=== PATIENT | female | born 1970 | race African-American/Black ===

== ENCOUNTER 2024-09-09 17:23 | Emergency (ER) | payer MEDICAID, SELFPAY ==
--- NOTE | 2024-09-09 18:49 | EKG_ITS ---
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
[2024-09-09 18:50] VITALS: BP 146/67; PULSE 61; RESP 17; TEMP 37.4; O2SAT 96; BMI 31.4
--- NOTE | 2024-09-09 19:11 | XR_ITS ---
Examination: PA chest single view Findings portable and PA chest single view Date and time: September 09, 2024 1933 hours INDICATIONS: Onset chest pain FINDINGS: Normal heart size Lungs are clear. The osseous structures are intact IMPRESSION: No active disease
--- NOTE | 2024-09-09 19:11 | PD.EDRME ---
Rapid Medical Screening Exam RME Arrival date/time: 09/09/24 17:23 54F w/ PMH of COPD/asthma, CHF, HTN, HLD, aortobifemoral bypass, and GERD presents to ED with 1 week of upper back/chest pain and SOB, possibly after she lifted something heavy. There is also some fatigue/weakness. Patient is currently on clindamycin for a dental infection. Chief Complaint: Back Pain/Injury Time Seen by Provider: 09/09/24 18:58 Vital signs: Vital Signs Temperature 99.3 F 09/09/24 18:50 Pulse Rate 61 09/09/24 18:50 Respiratory Rate 17 09/09/24 18:50 Blood Pressure 146/67 H 09/09/24 18:50 Pulse Oximetry (%) 96 09/09/24 18:50 Oxygen Delivery Method Room Air 09/09/24 18:50
[2024-09-09 19:32] LABS: Lactate (Lactic Acid) 1.1 mMol/L (0.4-2.0)
[2024-09-09 19:39] LABS: Basophils # (Auto) 0.1 Thou/mm3 (0.0-0.2); Basophils % (Auto) 1 % (0-2.5); Eosinophils # (Auto) 0.3 Thou/mm3 (0.0-0.5); Eosinophils % (Auto) 2 % (0-10); Hematocrit 41.0 % (36.0-46.0); Hemoglobin 13.5 g/dL (12.0-16.0); Immature Granulocytes Auto 0.03 Thou/mm3 (0.00-0.00); Lymphocytes # (Auto) 5.9 Thou/mm3 (1.0-4.8); Lymphocytes % (Auto) 45 % (10-50); Mean Corpuscular HGB Conc 32.9 g/dl (31.0-37.0); Mean Corpuscular Hemoglobin 27.8 pg (25.0-35.0); Mean Corpuscular Volume 85 fL (80-100); Monocytes # (Auto) 0.7 Thou/mm3 (0.0-0.8); Monocytes % (Auto) 5 % (0-12); Neutrophils # (Auto) 6.1 Thou/mm3 (1.8-7.7); Neutrophils % (Auto) 47 % (37-80); Nucleated Red Blood Cell # 0.00 Thou/mm3 (0.00-0.00); Nucleated Red Blood Cell % 0 /100 WBC (0); Platelet Count 296 Thou/mm3 (140-440); RDW Standard Deviation 53.5 fL (36.4-46.3); Red Blood Count 4.85 Miln/mm3 (4.00-5.20); White Blood Count 13.1 Thou/mm3 (3.6-11.0)
[2024-09-09 19:58] LABS: B-Type Natriuretic Peptide 26 pg/mL (0-100)
[2024-09-09 20:06] LABS: Alanine Aminotransferase 7 U/L (10-49); Albumin, Serum 5.3 gm/dL (3.5-5.0); Albumin/Globulin Ratio 2.2 (1.2-2.2); Alkaline Phosphatase 95 U/L (46-116); Anion Gap 7 (7-16); Aspartate Amino Transferase 13 U/L (0-34); BUN/Creatinine Ratio 11 Ratio (12-20); Bilirubin,Total 0.3 mg/dL (0.3-1.2); Blood Urea Nitrogen 10 mg/dL (9-23); Calcium 10.0 mg/dL (8.3-10.6); Calcium (Corrected) 10.0 mg/dL (8.5-10.1); Carbon Dioxide 24.9 mMol/L (20.0-31.0); Chloride 113 mMol/L (98-107); Creatinine (Component) 0.9 mg/dL (0.6-1.3); Estimated Creatinine Clearance 64.8 mL/min (>60); Globulin 2.4 gm/dL (2.3-3.5); Glucose 96 mg/dL (74-106); Magnesium 2.1 mg/dL (1.6-2.6); Osmolality,Calculated 287 (275-295); Potassium 3.2 mMol/L (3.4-5.1); Procalcitonin 0.05 ng/ml (0.0-0.49); Sodium 145 mMol/L (136-145); Total Protein 7.7 gm/dL (5.7-8.2); Troponin I < 0.020 ng/mL (0.0-0.045); eGFR > 60 See Note
[2024-09-09 21:15] LABS: Path Review Blood Smear Sent to Pathologist
[2024-09-09 21:42] VITALS: BP 148/81; PULSE 79; RESP 18; TEMP 37; O2SAT 99
--- NOTE | 2024-09-09 21:59 | PD.EDBACK ---
ED Back Injury Pain RME/HPI General Chief Complaint: Back Pain/Injury Stated Complaint: Lower back, right ribs pain and SOB Time Seen by Provider: 09/09/24 18:58 Arrival date/time: 09/09/24 17:23 RME / HPI RME / HPI Narrative: 09/09/24 17:23 54F w/ PMH of COPD/asthma, CHF, HTN, HLD, aortobifemoral bypass, and GERD presents to ED with 1 week of upper back/chest pain and SOB, possibly after she lifted something heavy. There is also some fatigue/weakness. Patient is currently on clindamycin for a dental infection. ----- Dr. Scott?s Main ED Evaluation: 54yo female with a history of COPD, HTN, aortobifemoral bypass presents to the ED for a chief complaint of right lower chest pain that radiates to her back x 1 week. Patient denies any falls or injuries. She is a current tobacco smoker. No fever, chills, N/V, dizziness or any other associated symptoms. Related Data Home Medications ?Medication ?Instructions ?Recorded ?Confirmed ascorbic acid (vitamin C) 500 mg 500 mg PO BID 12/09/21 01/17/22 tablet atorvastatin 10 mg tablet 10 mg PO QDAY 12/09/21 01/17/22 baclofen 10 mg tablet 10 mg PO QDAY 12/09/21 01/17/22 collagenase clostridium histo. 250 1 applic topical QDAY 12/09/21 01/17/22 unit/gram topical ointment (Santyl) ergocalciferol (vitamin D2) 1,250 1,250 mcg PO QWEEK 12/09/21 01/17/22 mcg (50,000 unit) capsule gabapentin 600 mg tablet 600 mg PO TID 12/09/21 01/17/22 guaifenesin 100 mg/5 mL oral 200 mg PO Q4H PRN Cough 12/09/21 01/17/22 liquid (Sofie-Tussin) hydrocodone 10 mg-acetaminophen 1 tab PO Q6H PRN Pain 12/09/21 01/17/22 325 mg tablet lactulose 20 gram/30 mL oral 20 g PO QDAY PRN Constipation 12/09/21 01/17/22 solution loratadine 10 mg tablet 10 mg PO QDAY 12/09/21 01/17/22 multivitamin 1 tab PO QDAY 12/09/21 01/17/22 omeprazole 20 mg capsule,delayed 20 mg PO QDAY 12/09/21 01/17/22 release Previous Rx's ?Medication ?Instructions ?Recorded ferrous fumarate-folic acid 324 mg 1 tab PO QDAY #30 tabs 12/24/21 (106 mg iron)-1 mg tablet prednisone 20 mg tablet See Taper PO QDAY #7 tabs 12/24/21 prednisone 50 mg tablet 50 mg PO QDAY #7 tabs 02/13/22 Allergies Allergy/AdvReac Type Severity Reaction Status Date / Time Penicillins Allergy Severe Swelling Verified 09/09/24 17:29 of Lip/Tongue/Throat Review of Systems Review of Systems Systems Reviewed: All systems reviewed, normal except as documented Past Medical History Past Medical History NEUROLOGIC: Negative Seizures CARDIAC: Positive Myocardial Infarction, Congestive Heart Failure and Hypertension; Negative Cardiac Disorders RESPIRATORY: Positive Chronic Obstructive Pulmonary Disease (COPD); Negative Asthma GENITOURINARY: Negative Renal Disease ENDOCRINE: Negative Diabetes Mellitus Type 1 or Diabetes Mellitus Type 2 HEMATOLOGIC: Negative Sickle Cell Disease OTHER HISTORY: Positive Blood Transfusions; Negative Blood Transfusion Reaction or Anesthesia Reactions Social History SMOKING STATUS: Current every day smoker ED Exam Narrative Physical exam: Generally patient is alert in no obvious distress, heart regular rate and rhythm that rubs or gallops, lungs clear to auscultation equal bilaterally, abdomen soft bowel sounds present nondistended nontender with a laparotomy scar. Chest shows the patient have reproducible tenderness to light palpation under the right breast and right posterior back without overlying rash. Course Quality Measures none Orders Category Date Time Status EKG (ED ONLY) *Do not use* NOW Care 09/09/24 18:49 Completed EKG (ED Only) Stat Exams 09/09/24 18:49 Draft XR chest 1V portable Stat Exams 09/09/24 19:11 Completed B-Type Natriuretic Peptide Stat Lab 09/09/24 19:26 Completed CBC Stat Lab 09/09/24 19:26 Completed Comprehensive Metabolic Panel Stat Lab 09/09/24 19:26 Completed Lactate (Lactic Acid) Stat Lab 09/09/24 19:26 Completed Magnesium Stat Lab 09/09/24 19:26 Completed Path Review Blood Smear Stat Lab 09/09/24 19:26 Completed Procalcitonin Stat Lab 09/09/24 19:26 Completed Troponin I Stat Lab 09/09/24 19:26 Completed Vital Signs Vital signs: Vital Signs Temperature 99.3 F 09/09/24 18:50 Pulse Rate 61 09/09/24 18:50 Respiratory Rate 17 09/09/24 18:50 Blood Pressure 146/67 H 09/09/24 18:50 Pulse Oximetry (%) 96 09/09/24 18:50 Oxygen Delivery Method Room Air 09/09/24 18:50 Back Pain / Injury MDM Narrative MDM Narrative:: Scribe Attestation: 09/09/24 - Erick, Kailee May am scribing for and in the presence of Dr. Scott. I interpreted all labs. The patient's physical exam is not compatible with internal cause of the patient's pain. Chest x-ray is normal. EKG is nonischemic. It was obtained at 6:54 PM and shows sinus bradycardia at a rate of 51 without ischemic change or ectopy. Troponin was not elevated. Patient has had this pain for over a week. Patient is on multiple medications at home. Patient will be discharged in stable condition. Patient data External records reviewed:: [facility] previous records (Per chart review, patient was seen here on 04/07/22 for abdominal pain.) Clinical information provided by:: patient Social determinants that could affect healthcare access:: substance use (tobacco use) Patient has the following chronic illnesses:: CHF, COPD, HTN, aortobifemoral bypass How is presenting disease/condition affected by chronic disease/condition?: uneffected by Evaluation data The following diagnostics were reviewed and interpreted by me:: lab results, radiology exam(s) and EKG tracing(s) Lab and/or radiology exams considered but not ordered:: none Interpretation Summary: [facility] Report Signed Patient: DEYANIRA CURRAN [facility] Record#: [id number] Birthdate: 1970 Age/Sex: 54 / F Location: [facility] Attending Dr: Ordering Physician: Jluis Anglin PA-C Date of Service: 09/09/24 Procedure(s): XR chest 1V portable Accession Number(s): [id number] cc: Lalo Oscar MD; TRAVIS DUGAN; Jluis Anglin PA-C~ Examination: PA chest single view Findings portable and PA chest single view Date and time: September 09, 2024 1933 hours INDICATIONS: Onset chest pain FINDINGS: Normal heart size Lungs are clear. The osseous structures are intact IMPRESSION: No active disease Dictated By: Lalo Oscar MD Signed By: <Electronically signed by Lalo Oscar MD in OV> 09/09/242041 Medications / Prescriptions Medications or Prescriptions considered but not ordered:: none Medication administrations:: see above, if any Consultations Consultation(s) initiated? (list below): No Diagnosis Differential diagnosis back pain/injury: other (NSTEMI, STEMI, ACS, musculoskeletal strain) Most likely diagnosis given after review of the tests above:: see clinical impression below Admission Indicated Admission indicated?: not indicated Admission Request Was there a request for admission?: No Disposition Plan Disposition Plan: Discharge Discharge Attestation Discharge Attestation: The patient and all family members were given an opportunity to ask questions and understood the discharge instructions. Discharge instructions specifically effects, indications for sooner follow up or return to the emergency department, and the expected course of current diagnosis. Patient condition: Stable Discharge Plan Plan Patient Disposition: HOME (Self Care) Prescriptions/Referrals Prescriptions/Med Rec: No Action multivitamin Tablet 1 tab PO QDAY gabapentin 600 mg Tablet 600 mg PO TID atorvastatin 10 mg Tablet 10 mg PO QDAY hydrocodone-acetaminophen 10-325 mg Tablet 1 tab PO Q6H PRN (Reason: Pain) guaifenesin [Sofie-Tussin] 100 mg/5 mL Liquid 200 mg PO Q4H PRN (Reason: Cough) ascorbic acid (vitamin C) 500 mg Tablet 500 mg PO BID baclofen 10 mg Tablet 10 mg PO QDAY omeprazole 20 mg Capsule,Delayed Release(Dr/Ec) 20 mg PO QDAY ergocalciferol (vitamin D2) 1,250 mcg (50,000 unit) Capsule 1,250 mcg PO QWEEK Rx Instructions: ON FRIDAY Santyl 250 unit/gram Ointment 1 applic TOPICAL QDAY loratadine 10 mg Tablet 10 mg PO QDAY lactulose 20 gram/30 mL Solution 20 g PO QDAY PRN (Reason: Constipation) ferrous fumarate-folic acid 324 mg (106 mg iron)-1 mg tablet 1 tab PO QDAY Qty: 30 0RF Rx Instructions: administer between meals prednisone 20 mg tablet See Taper PO QDAY Qty: 7 0RF Taper: Prednisone Taper 20 mg DAILY for 2 Days and 0 Hour 10 mg DAILY for 2 Days and 0 Hour 5 mg DAILY for 7 Days and 0 Hour prednisone 50 mg tablet 50 mg PO QDAY Qty: 7 0RF Referrals: Travis Dugan [Primary Care Provider] - In 1 week Problem List Clinical Impression: Musculoskeletal pain Patient/Caregiver Discharge Instructions Additional Instructions: Continue all current home medications. Follow-up with your doctor for further treatment and evaluation. Return to ER as needed or if condition worsens. Print Language: Angolan Stand Alone Forms: Cassandra Award Info., Patient Portal Info Letter
== END 2024-09-09 22:43 | disposition home or self-care (01) ==
PROVIDERS: Physician Assistant; Emergency Provider Emergency Medicine; PCP Family Medicine
DX: M79.18 Myalgia, other site (principal); R07.89 Other chest pain; R00.1 Bradycardia, unspecified; I11.0 Hypertensive heart disease with heart failure; I50.9 Heart failure, unspecified; F17.210 Nicotine dependence, cigarettes, uncomplicated
CPT/HCPCS: 36415; 71045; 80053; 83605; 83735; 83880; 84145; 84484; 85025; 93005; 99283

== ENCOUNTER 2025-01-24 14:32 | Emergency (ER) | payer MEDICAID, SELFPAY ==
--- NOTE | 2025-01-24 14:48 | PD.EDWEAK ---
ED Weakness RME/HPI General Chief complaint: General Adult/Misc Complain Stated complaint: SUPRAPUBIC PAIN W/ BUMPS/SWELLING Time Seen by Provider: 01/24/25 14:36 Arrival date/time: 01/24/25 14:32 RME / HPI RME / HPI Narrative: See [facility] for Dr. Hurt's HPI Documentation. Related Data Home Medications ?Medication ?Instructions ?Recorded ?Confirmed ascorbic acid (vitamin C) 500 mg 500 mg PO BID 12/09/21 01/17/22 tablet atorvastatin 10 mg tablet 10 mg PO QDAY 12/09/21 01/17/22 baclofen 10 mg tablet 10 mg PO QDAY 12/09/21 01/17/22 collagenase clostridium histo. 250 1 applic topical QDAY 12/09/21 01/17/22 unit/gram topical ointment (Santyl) ergocalciferol (vitamin D2) 1,250 1,250 mcg PO QWEEK 12/09/21 01/17/22 mcg (50,000 unit) capsule gabapentin 600 mg tablet 600 mg PO TID 12/09/21 01/17/22 guaifenesin 100 mg/5 mL oral 200 mg PO Q4H PRN Cough 12/09/21 01/17/22 liquid (Sofie-Tussin) hydrocodone 10 mg-acetaminophen 1 tab PO Q6H PRN Pain 12/09/21 01/17/22 325 mg tablet lactulose 20 gram/30 mL oral 20 g PO QDAY PRN Constipation 12/09/21 01/17/22 solution loratadine 10 mg tablet 10 mg PO QDAY 12/09/21 01/17/22 multivitamin 1 tab PO QDAY 12/09/21 01/17/22 omeprazole 20 mg capsule,delayed 20 mg PO QDAY 12/09/21 01/17/22 release Previous Rx's ?Medication ?Instructions ?Recorded ferrous fumarate-folic acid 324 mg 1 tab PO QDAY #30 tabs 12/24/21 (106 mg iron)-1 mg tablet prednisone 20 mg tablet See Taper PO QDAY #7 tabs 12/24/21 prednisone 50 mg tablet 50 mg PO QDAY #7 tabs 02/13/22 azithromycin 500 mg tablet 500 mg PO QDAY 3 days #3 tabs 01/24/25 (Zithromax TRI-CONSUELO) clindamycin HCl 300 mg capsule 300 mg PO QID 10 days #40 caps 01/24/25 prednisone 50 mg tablet 50 mg PO QDAY #3 tabs 01/24/25 Allergies Allergy/AdvReac Type Severity Reaction Status Date / Time Penicillins Allergy Severe Swelling Verified 01/24/25 14:36 of Lip/Tongue/Throat Review of Systems Review of Systems Systems Reviewed: All systems reviewed, normal except as documented Past Medical History Past Medical History CARDIAC: Positive Myocardial Infarction, Congestive Heart Failure and Hypertension RESPIRATORY: Positive Chronic Obstructive Pulmonary Disease (COPD) OTHER HISTORY: Positive Blood Transfusions Social History SMOKING STATUS: Current every day smoker ED Exam Narrative Physical exam: See [facility] for Dr. Hurt's Physical Exam Documentation. Course Quality Measures none Orders Category Date Time Status CT Screening NOW Care 01/24/25 14:[address] Screening NOW Care 01/24/25 14:56 Completed EKG (ED ONLY) *Do not use* NOW Care 01/24/25 14:53 Completed Saline [Insert IV] NOW Care 01/24/25 14:[address] abdomen pelvis w con Stat Exams 01/24/25 14:[address] angio chest Stat Exams 01/24/25 14:[address] facial bones w con Stat Exams 01/24/25 14:[address] head/brain wo con Stat Exams 01/24/25 14:54 Completed EKG (ED Only) Stat Exams 01/24/25 14:53 Draft US soft tissue lower back abd Stat Exams 01/24/25 14:51 Completed US venous doppler LE BI Stat Exams 01/24/25 14:53 Completed US venous doppler UE BI Stat Exams 01/24/25 14:53 Completed XR chest 1V portable Stat Exams 01/24/25 14:53 Completed Acetaminophen Tab [Tylenol ES Tab] Med 01/24/25 20:24 Discontinued 1,000 mg PO X1 ONE Albuterol/Ipratr Rt Odalis [Duoneb Rt Odalis] Med 01/24/25 20:24 Discontinued 3 ml INH X1 ONE Clindamycin [Cleocin] Med 01/24/25 20:24 Discontinued 300 mg PO X1 ONE Ibuprofen Tab [Motrin Tab] Med 01/24/25 20:24 Discontinued 600 mg PO X1 ONE predniSONE Med 01/24/25 20:24 Discontinued 60 mg PO X1 ONE Vital Signs Vital signs: Vital Signs Temperature 99.5 F 01/24/25 14:50 Pulse Rate 107 H 01/24/25 14:50 Respiratory Rate 20 01/24/25 14:50 Blood Pressure 166/106 H 01/24/25 14:50 Pulse Oximetry (%) 96 01/24/25 14:50 Oxygen Delivery Method Room Air 01/24/25 14:50 PROCEDURES: Abscess I/D Site: abdomen Local Anesthetic: lidocaine 1% Amount of anesthesia used (mL): 3 Technique: incised with #11 blade Amount of fluid expressed (mL): 3 Irrigation: No Packing used?: none Weakness MDM Narrative MDM Narrative:: This section includes all my notes and documentations, including HPI, PE, and ED course. Addison Hurt MD HPI: 54 y/o female with Hx of CHF, OR, COPD, and HTN multiple areas of pain. Including headache and dental pain and neck pain and chest pain and back pain and arm pain and leg pain and painful lump in the lower abdominal area. She has trouble describing the onset. She has trouble describing the quality and quantity of the pain. She is concerned because she had clots in multiple areas of her body in the past. No fever or chills. No other complaints. ROS: All negative except as documented in HPI. Physical Exam: General: Alert and oriented. No acute distress when remaining still. Eyes: Conjunctivae and lids clear. EOMI. PERRL. ENT: No nasal congestion. Pharynx normal. Tympanic membrane normal bilaterally. In the mouth, diffuse dental caries noted with diffuse edematous gums with erythema and tenderness. Neck: Supple. No carotid bruit. No JVD. No spinal tenderness. Heart: RRR. Lungs: No respiratory distress. Mildly decreased air movement with rhonchi. Chest: No tenderness. Abdomen: Soft and nontender. Normal bowel sounds. No distension. No rebound or guarding. Back: No spinal tenderness. Legs: No clubbing, cyanosis, edema. Skin: Warm and dry. In the lower abdominal area, there is a pecan sized erythematous fluctuant mass with calor and tenderness. Neuro: Alert and oriented X 3. Cranial Nerves II-XII grossly intact. No peripheral motor deficits. Musculoskeletal: All major joints and bones are not tender with no limited ROM. I reviewed all diagnostic test results: My interpretation of the EKG is: Sinus rhythm (64 bpm) with nonspecific ST-T changes. My interpretation of the chest x-ray is: NAD. My review of the Head/Brain CT report is: Prominent chronic frontal and ethmoid sinusitis. My review of the Facial Bones CT report is: Right mandibular incisal dental caries. Cellulitis pattern bilaterally anterior to the maxilla and the mandible which may relate to the patient's piercing in the right lip. My review of the Chest CTA report is: NAD. My review of the Abdomen/Pelvis CT report is: NAD. My review of the Venous Doppler BLE US report is: No DVT. My review of the Venous Doppler BUE US report is: No DVT. My review of the Soft Tissue Lower Abdomen US report is: 2.4 x 0.7 x 2.3 cm abscess. At this point, diagnoses include: Cutaneous abscess of abdominal wall COPD (chronic obstructive pulmonary disease) Infected dental caries Treatment here included: Incision and drainage (see procedure note) Prednisone 80 mg DuoNeb Oral clindamycin 100 mg Tylenol and ibuprofen She felt much better. Recommended more outpatient care. Based on my best medical judgment, made decision no further evaluation or treatment indicated at this time. Patient understands and agrees to the discharge instructions customized and printed, see below. Discharge Instructions from Dr. Hurt printed for you: 1. After extensive evaluation (literally from head to toe), there is no immediately life-threatening condition. Such as stroke or brain tumor or heart attack or pulmonary embolism (blood clots in your lungs) or pneumothorax (collapsed lung). And there is no very serious infection. Such as pneumonia or sepsis (blood poisoning). 2. Your diagnoses include superficial abscess in lower abdominal wall (incised and drained here) and COPD flare and infected dental caries. See attached handouts. ?Three times per day, soak in warm water with antibacterial soap and Epsom salt. Try to gently squeeze out more pus before the incisions closed. ?After drying as much as possible, apply new dressings 3. Take Zithromax and clindamycin for your infections. 4. For your COPD: -- No physical exertion for 3 days to help rest the lungs. -- No smoking or exposure to smoking or pets or dust or cold or humidity. -- Prednisone to help decrease the swelling in the airways. -- Neb treatment every 4-6 hours for 3 days scheduled to help keep the airways open. Then as needed for cough or shortness of breath. 5. You need to remove your lip piercing for cellulitis (infection) to get better, along with taking above antibiotics. 6. For your severe infected dental caries, you need to see a dentist as soon as possible. Most likely, you will need to remove your teeth. Otherwise, your infection will probably never get better. 7. See a private doctor on 01/26/2025 for recheck and further care. Ask for help until you are completely better. Ask to review all test results and official radiology reports, to make sure you receive all necessary follow-ups and monitoring, including lung nodules and gastritis and sinusitis and thyroid mass. 8. Seek immediate medical care with fever, spreading redness from an infection, or with any concerns. Addison Hurt MD Patient data External records reviewed:: [facility] previous records (Reviewed prior ED records from 09/09/24. Patient was seen for Musculoskeletal pain.) Clinical information provided by:: patient Social determinants that could affect healthcare access:: none Patient has the following chronic illnesses:: Congestive Heart Failure, Hypertension, COPD How is presenting disease/condition affected by chronic disease/condition?: exacerbated by Evaluation data The following diagnostics were reviewed and interpreted by me:: radiology exam(s) and EKG tracing(s) (My interpretation of the EKG is: Sinus rhythm (64 bpm) with nonspecific ST-T changes. Addison Hurt MD) Lab and/or radiology exams considered but not ordered:: None Interpretation Summary: I reviewed all diagnostic test results: My interpretation of the EKG is: Sinus rhythm (64 bpm) with nonspecific ST-T changes. My interpretation of the chest x-ray is: NAD. My review of the Head/Brain CT report is: Prominent chronic frontal and ethmoid sinusitis. My review of the Facial Bones CT report is: Right mandibular incisal dental caries. Cellulitis pattern bilaterally anterior to the maxilla and the mandible which may relate to the patient's piercing in the right lip. My review of the Chest CTA report is: NAD. My review of the Abdomen/Pelvis CT report is: NAD. My review of the Venous Doppler BLE US report is: No DVT. My review of the Venous Doppler BUE US report is: No DVT. My review of the Soft Tissue Lower Abdomen US report is: 2.4 x 0.7 x 2.3 cm abscess. Medications / Prescriptions Medications or Prescriptions considered but not ordered:: None Medication administrations:: Medication Administration History Discontinued Medications Acetaminophen (Acetaminophen 500 Mg Tablet) 1,000 mg PO X1 ONE Stop: 01/24/25 20:25 Last Admin: 01/24/25 21:10 Dose: 1,000 mg Documented By: OA Albuterol/Ipratropium (Albuterol/Ipratropium (Duoneb) Rt Odalis 3 Ml Nebu) 3 ml INH X1 ONE Stop: 01/24/25 20:25 Last Admin: 01/24/25 21:27 Dose: 3 ml Documented By: SOMMER Clindamycin HCl (Clindamycin 150 Mg Capsule) 300 mg PO X1 ONE Stop: 01/24/25 20:25 Last Admin: 01/24/25 21:10 Dose: 300 mg Documented By: OA Ibuprofen (Ibuprofen Tab 600 Mg Tablet) 600 mg PO X1 ONE Stop: 01/24/25 20:25 Last Admin: 01/24/25 21:10 Dose: 600 mg Documented By: OA Prednisone (Prednisone 20 Mg Tablet) 60 mg PO X1 ONE Stop: 01/24/25 20:25 Last Admin: 01/24/25 21:10 Dose: 60 mg Documented By: OA Treatment here included: Incision and drainage (see procedure note) Prednisone 80 mg DuoNeb Oral clindamycin 100 mg Tylenol and ibuprofen Consultations Consultation(s) initiated? (list below): No Diagnosis Weakness Differential Diagnosis: acute myocardial infarction, anemia, hypoglycemia, hypothyroidism, rhabdomyolysis, sepsis and dehydration Most likely diagnosis given after review of the tests above:: Cutaneous abscess of abdominal wall COPD (chronic obstructive pulmonary disease) Infected dental caries Admission Indicated Admission indicated?: not indicated Explain why admission is indicated or not indicated:: With significant improvement and no condition needing emergent intervention, there was no indication for admission. Admission Request Was there a request for admission?: No Disposition Plan Disposition Plan: Discharge Discharge Attestation Discharge Attestation: The patient and all family members were given an opportunity to ask questions and understood the discharge instructions. Discharge instructions specifically effects, indications for sooner follow up or return to the emergency department, and the expected course of current diagnosis. Patient condition: Stable Discharge Plan Plan Patient Disposition: HOME (Self Care) Prescriptions/Referrals Prescriptions/Med Rec: New clindamycin HCl 300 mg capsule 300 mg PO QID 10 Days Qty: 40 0RF prednisone 50 mg tablet 50 mg PO QDAY Qty: 3 0RF azithromycin [Zithromax TRI-CONSUELO] 500 mg tablet 500 mg PO QDAY 3 Days Qty: 3 0RF No Action multivitamin Tablet 1 tab PO QDAY gabapentin 600 mg Tablet 600 mg PO TID atorvastatin 10 mg Tablet 10 mg PO QDAY hydrocodone-acetaminophen 10-325 mg Tablet 1 tab PO Q6H PRN (Reason: Pain) guaifenesin [Sofie-Tussin] 100 mg/5 mL Liquid 200 mg PO Q4H PRN (Reason: Cough) ascorbic acid (vitamin C) 500 mg Tablet 500 mg PO BID baclofen 10 mg Tablet 10 mg PO QDAY omeprazole 20 mg Capsule,Delayed Release(Dr/Ec) 20 mg PO QDAY ergocalciferol (vitamin D2) 1,250 mcg (50,000 unit) Capsule 1,250 mcg PO QWEEK Rx Instructions: ON FRIDAY Santyl 250 unit/gram Ointment 1 applic TOPICAL QDAY loratadine 10 mg Tablet 10 mg PO QDAY lactulose 20 gram/30 mL Solution 20 g PO QDAY PRN (Reason: Constipation) ferrous fumarate-folic acid 324 mg (106 mg iron)-1 mg tablet 1 tab PO QDAY Qty: 30 0RF Rx Instructions: administer between meals prednisone 20 mg tablet See Taper PO QDAY Qty: 7 0RF Taper: Prednisone Taper 20 mg DAILY for 2 Days and 0 Hour 10 mg DAILY for 2 Days and 0 Hour 5 mg DAILY for 7 Days and 0 Hour prednisone 50 mg tablet 50 mg PO QDAY Qty: 7 0RF Referrals: No Primary/Family,Physician [Referring Provider] - In 1 week Problem List Clinical Impression: Cutaneous abscess of abdominal wall, COPD (chronic obstructive pulmonary disease), Infected dental caries Patient/Caregiver Discharge Instructions Discharge Activity: activity as tolerated Education Materials: ED COPD Flare, ED Dental Cavity, ED Dental Abscess, ED Abscess Incision And ... Additional Instructions: Discharge Instructions from Dr. Hurt printed for you: 1. After extensive evaluation (literally from head to toe), there is no immediately life-threatening condition. Such as stroke or brain tumor or heart attack or pulmonary embolism (blood clots in your lungs) or pneumothorax (collapsed lung). And there is no very serious infection. Such as pneumonia or sepsis (blood poisoning). 2. Your diagnoses include superficial abscess in lower abdominal wall (incised and drained here) and COPD flare and infected dental caries. See attached handouts. ?Three times per day, soak in warm water with antibacterial soap and Epsom salt. Try to gently squeeze out more pus before the incisions closed. ?After drying as much as possible, apply new dressings 3. Take Zithromax and clindamycin for your infections. 4. For your COPD: -- No physical exertion for 3 days to help rest the lungs. -- No smoking or exposure to smoking or pets or dust or cold or humidity. -- Prednisone to help decrease the swelling in the airways. -- Neb treatment every 4-6 hours for 3 days scheduled to help keep the airways open. Then as needed for cough or shortness of breath. 5. You need to remove your lip piercing for cellulitis (infection) to get better, along with taking above antibiotics. 6. For your severe infected dental caries, you need to see a dentist as soon as possible. Most likely, you will need to remove your teeth. Otherwise, your infection will probably never get better. 7. See a private doctor on 01/26/2025 for recheck and further care. Ask for help until you are completely better. Ask to review all test results and official radiology reports, to make sure you receive all necessary follow-ups and monitoring, including lung nodules and gastritis and sinusitis and thyroid mass. 8. Seek immediate medical care with fever, spreading redness from an infection, or with any concerns. Print Language: Kiswahili Stand Alone Forms: Cassandra Award Info., Patient Portal Info Letter
[2025-01-24 14:50] VITALS: BP 166/106; PULSE 107; RESP 20; TEMP 37.5; O2SAT 96
--- NOTE | 2025-01-24 14:51 | XR_ITS ---
EXAMINATION: Ultrasound soft tissue lower abdomen TECHNIQUE: Sonographic images soft tissue lower abdomen Date and time: January,, 1534 hours INDICATIONS: Lower abdominal pain with lump beginning 2 days ago. FINDINGS: Cystic structure with internal echoes in the soft tissue lower abdomen, 2.4 x 0.7 x 2.3 cm IMPRESSION: 2.4 x 0.7 x 2.3 cm cystic structure with internal echoes at the area of concern, most consistent with abscess, clinical correlation advised
--- NOTE | 2025-01-24 14:53 | EKG_ITS ---
[facility] Test Date: 2025-01-24 Pat Name: DEYANIRA CURRAN Department: Room: - Gender: Female Electrical Tech: : [id number] Requested By: Addison Ma Order Number: [id number] Reading MD: Addison Ma Measurements Intervals [place] Rate: 64 P: 60 MT: 142 QRS: 10 QRSD: 88 T: 54 QT: 381 QTc: 395 Interpretive Statements SINUS RHYTHM LOW QRS VOLTAGE IN PRECORDIAL LEADS [QRS DEFLECTION < 1.0 mV IN CHEST LEADS] Compared to ECG 09/09/2024 18:54:48 Low QRS voltage now present Sinus bradycardia no longer present /store/S0/[id number]/ecg/[id number].pdf
--- NOTE | 2025-01-24 14:53 | XR_ITS ---
Examination: Venous duplex lower extremity sonogram, bilateral. Date and time of exam: 01/24/2025 at 3:18 p.m. Technique: Multiple sonographic images of the deep venous system have been obtained. B-mode/2-D grayscale imaging of vascular structures and Doppler spectral analysis (waveforms) and color performed Both legs are examined. Findings: Deep venous systems do not demonstrate abnormal echogenicity. All visualized deep veins exhibit compressibility. All visualized deep veins exhibit augmentation. Impression: Negative for deep vein thrombosis in the right lower extremity and left lower extremity.
--- NOTE | 2025-01-24 14:53 | XR_ITS ---
Upright PA chest film on 01/24/2025 at 4:24 p.m. CLINICAL INDICATION: Shortness of breath and chest pain today FINDINGS: 1. The heart size and configuration are normal. No abnormalities are seen in the mediastinum or hilar regions, pulmonary vascularity is normal. Both lungs and pleural space are clear and normal IMPRESSION: Normal upright PA chest
--- NOTE | 2025-01-24 14:53 | XR_ITS ---
Examination: Venous duplex upper extremity sonogram, bilateral. Date and time of exam: 01/24/2025 at 3:40 p.m. Technique: Multiple sonographic images of the deep venous system have been obtained. B-mode/2-D grayscale imaging of vascular structures and Doppler spectral analysis (waveforms) and color performed Both legs are examined. Findings: Deep venous systems do not demonstrate abnormal echogenicity. All visualized deep veins exhibit compressibility. All visualized deep veins exhibit augmentation. In the left lobe of the thyroid gland, there is a bilobulated echogenic mass measuring 1 x 1.8 cm in maximum diameter there is a biloculated sonolucent fluid filled area noted within this echogenic nodular mass Impression: 1 the color flow duplex ultrasound of the deep venous system in the upper extremities and in the cervical region bilaterally, shows no evidence of any deep venous thrombophlebitis anywhere 2. There is a by lobulated echogenic mass lesion noted in the left lobe of the thyroid gland further discussed above, this predominantly echogenic solid mass contains a biloculated internal fluid collection 3 ultrasound-guided fine-needle biopsy is strongly recommended to rule out the possibility of malignancy
--- NOTE | 2025-01-24 14:54 | XR_ITS ---
Examination: CT brain head without contrast. 2-D sagittal coronal reconstructions Date and time of exam: January,, 1829 hours INDICATIONS: Generalized head pain today CTDI: vol (mGy): 50.5 DLP: (mGycm): 960 Technique: Multiple CT axial sections of the brain have been obtained, 5 mm slice thickness. Contrast has not been administered. 2-D sagittal, coronal reconstructions have been obtained Low dose protocols were performed. One or more of the following dose reduction techniques were used; automated exposure control, adjustment of the mA and/or KV according to patient size, use of iterative reconstruction technique. Findings: No significant ventricular enlargement. Intra-axial or extra-axial hemorrhage density is not seen. No mass effect or midline shift Basal cisterns are not remarkable. Fourth ventricle is midline. Cranial vault intact. Impression: Negative for acute hemorrhage, mass effect or midline shift Prominent chronic frontal and ethmoid sinusitis
--- NOTE | 2025-01-24 14:54 | XR_ITS ---
Examination: CT maxillofacial, with contrast 2-D sagittal and coronal reconstructions. 3-D reconstructions Date and time of exam: January 24, 2025, 1832 hours INDICATIONS: Facial pain to the gums today CTDI: vol (mGy): 45 DLP: (mGycm): 848 Technique: Multiple axial images maxillofacial region, 3.0 mm slice thickness, post intravenous injection 100 cc [id number] 2D sagittal coronal reconstructions 3D reconstructions No dose protocols, automated exposure control, adjustment of MA KV according to patient size, iterative reconstruction technique FINDINGS: Prominent frontal ethmoid sinusitis Optic globes exhibit symmetry Hypertrophy right inferior nasal turbinate Maxillary antra are clear Pterygoid plates maxilla and the mandible intact Right mandibular incisor dental caries Mild cellulitis pattern bilaterally anterior to the maxilla and mandible which may relate to the patient's foreign body in the right lip No soft tissue abscess Symmetrical nasopharynx oropharynx Symmetrical submandibular glands Normal larynx Epiglottis does not appear thickened IMPRESSION: Prominent frontal ethmoid chronic sinusitis Hypertrophy right inferior nasal turbinate Right mandibular incisal dental caries Cellulitis pattern bilaterally anterior to the maxilla and the mandible which may relate to the patient's piercing in the right lip
--- NOTE | 2025-01-24 14:56 | XR_ITS ---
Examination: CT abdomen with intravenous contrast CT pelvis with intravenous contrast 2-D coronal reconstructions 2-D sagittal reconstructions Date and time of exam: January 24, 2025, 1832 hours INDICATIONS: Generalized abdominal pain beginning today. CTDI: vol (mGy) 9.49 DLP: (mGycm) 514 Comparison April 07, 2022 Technique: Multiple axial sections of the abdomen and pelvis have been obtained. 64 slice high-resolution scanner used. 3 mm axial sections have been obtained, post intravenous injection 100 cc [id number] 2-D sagittal, coronal reconstructions obtained. Low dose protocols were performed. One or more of the following dose reduction techniques were used; automated exposure control, adjustment of the mA and/or KV according to patient size, use of iterative reconstruction technique. 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
--- NOTE | 2025-01-24 14:56 | XR_ITS ---
Examination: CTA chest with intravenous contrast 2-D reconstructions 3-D reconstructions, vascular Date and time of exam: January 24, 2025, 1830 hours INDICATIONS: Shortness of breath chest pain today CTDI: vol (mGy) 16.07 DLP: (mGycm) 301.67 Technique: Multiple axial sections of the thorax have been obtained. 3 mm slice thickness, from below the hemidiaphragms to above the apices of the lungs. Mediastinal and lung density settings have been obtained. 2-D sagittal and coronal reconstructions. 3-D angiographic renderings, 3-D volume renderings, 3D post processing, vascular maximum intensity projections obtained. Contrast administered is 100 cc [id number] COMPARISON: December 10, 2019. Low dose protocols were performed. One or more of the following dose reduction techniques were used; automated exposure control, adjustment of the mA and/or KV according to patient size, use of iterative reconstruction technique. Findings: No thoracic aortic aneurysmal dilatation or dissection Pulmonary artery segments do not show significant enlargement No pulmonary artery emboli Mild enlargement left atrium left ventricle 4 mm pulmonary nodule right upper lobe, 13 mm pulmonary nodule left lower lobe 4 mm pulmonary nodule right middle lobe COPD with areas of airspace destruction No pneumonia or pulmonary edema No pleural disease No visualized liver or splenic lesion No gallstones No pancreatic or adrenal mass Kidneys partially visualized no hydronephrosis Bowel thoracic spondylosis IMPRESSION: Negative for pulmonary artery emboli No pneumonia or pulmonary edema Bilateral pulmonary nodules including 13 mm pulmonary nodule left lower lobe, not visualized on the 2021 exam, differential would include lung carcinoma, early pulmonary nodular metastatic disease, clinical correlation advised
[2025-01-24] MEDS: ACETAMINOPHEN 500 MG TABLET 1000 MG PO (21:10)
[2025-01-24] MEDS: CLINDAMYCIN 150 MG CAPSULE 300 MG PO (21:10)
[2025-01-24] MEDS: IBUPROFEN TAB 600 MG TABLET PO (21:10)
[2025-01-24] MEDS: ALBUTEROL/IPRATROPIUM (Duoneb) RT SOL 3 ML NEBU INH (21:27)
[2025-01-24 21:31] VITALS: PULSE 52; RESP 19; O2SAT 99
== END 2025-01-24 22:03 | disposition home or self-care (01) ==
PROVIDERS: Emergency Provider Emergency Medicine; PCP Family Medicine
DX: L02.211 Cutaneous abscess of abdominal wall (principal); K04.7 Periapical abscess without sinus; J44.9 Chronic obstructive pulmonary disease, unspecified; F17.210 Nicotine dependence, cigarettes, uncomplicated; J32.8 Other chronic sinusitis; K29.70 Gastritis, unspecified, without bleeding; R94.31 Abnormal electrocardiogram [ECG] [EKG]; I11.0 Hypertensive heart disease with heart failure; I50.9 Heart failure, unspecified; I25.2 Old myocardial infarction
CPT/HCPCS: 70450; 70487; 71045; 71275; 74177; 76705; 93005; 93970; 94640; 99284; A4649; A9270; J7512; Q9967